=== PATIENT | female | born 1970 | race Two or more races ===

== ENCOUNTER 2018-02-23 14:27 | Emergency (ER) | payer BC, OTHER ==
[2018-02-23 14:45] VITALS: TEMP 97.8; BMI 29.2
--- NOTE | 2018-02-23 14:49 | PDOC ---
History of Present Illness - General Chief Complaint: Pain Stated Complaint: ABDOMINAL PAIN Time Seen by Provider: 02/23/18 14:49 - History of Present Illness Initial Comments: 02/23/18 16:25 The patient is a 47 year old female with a history of fibromyalgia, Lupus, Depression, Anxiety who presents for evaluation of abdominal pain. The patient reports a 1 day history of lower and jim-umbilical abdominal pain prompting her presentation to the Ed for further evaluation. She notes that she had a laproscopic hysterectomy due to uterine fibroids 1 month ago. She has noted some foul smelling vaginal discharge as well as burning on urination. She reports some nausea, but otherwise denies fevers, chills, SOB, chest pain, vomiting, or changes with bowel movements. Past History - Past Medical History Allergies/Adverse Reactions: Allergies Allergy/AdvReac Type Severity Reaction Status Date / Time No Known Allergies Allergy Unverified 02/23/18 14:29 Home Medications: Ambulatory Orders Clonazepam [Klonopin] 1 mg PO BID 02/23/18 Zolpidem Tartrate [Ambien] 12.5 mg PO HS 02/23/18 COPD: No Diabetes: Yes Other medical history: LUPUS,FIBROMYALGIA - Suicide/Smoking/Psychosocial Hx Smoking History: Never smoked Information on smoking cessation initiated: No Hx Alcohol Use: No Drug/Substance Use Hx: No Substance Use Type: None Review of Systems - Review of Systems Comments:: 02/23/18 16:28 Constitutional: No fevers, chills, fatigue, malaise HEENT: No Rhinorrhea, nasal congestion, visual changes Cardiovascular: No chest pain, syncope, palpitations, lightheadedness Respiratory: No Cough, SOB, Hemoptysis, Gastrointestinal: Abdominal pain, nausea. No Vomiting, Constipation, Diarrhea, Melena Genitourinary: Dysuria, Vaginal discharge. No Frequency, Urgency, Hesitancy, Hematuria, Flank pain Musculoskeletal: No Myalgia, arthralgia Skin: No rashes, itching, bruising, pallor Neurologic: No Headache, Dizziness, Numbness, Weakness, or Tingling Psychiatric: No Hallucinations. No SI or HI *Physical Exam - Vital Signs Last Vital Signs Temp Pulse Resp BP Pulse Ox 97.8 F 102 H 16 117/79 100 02/23/18 14:29 02/23/18 14:29 02/23/18 14:29 02/23/18 14:29 02/23/18 14:29 - Physical Exam Comments: 02/23/18 16:28 General Appearance: Nourished. No Apparent Distress HEENT: No Pharyngeal Erythema, Tonsillar Exudate, Tonsillar Erythema Neck: No Cervical Lymphadenopathy Respiratory/Chest: Lungs Clear, Normal Breath Sounds. No Crackles, Rales, Rhonchi, Wheezing Cardiovascular: Regular Rhythm, Regular Rate. No Murmur, Gallops, Rubs Gastrointestinal/Abdominal: Normal Bowel Sounds, Soft. Diffuse discomfort with palpation with some tenderness to palpation periumbilically. No Guarding, Rebound, Pelvic Exam: Normal External Exam. Yellowish, purulent fluid noted in the vaginal canal. No CMT, or adenxal tenderness Musculoskeletal: No CVA Tenderness Extremity: Normal Capillary Refill Integumentary: Normal Color, Dry, Warm Neurologic: Fully Oriented, Alert, Normal Mood/Affect, Normal Response, ED Treatment Course - LABORATORY CBC & Chemistry Diagram: 02/23/18 15:45 02/23/18 15:45 Medical Decision Making - Medical Decision Making 02/23/18 16:31 The patient is a 47 year old female with a history of fibromyalgia, Lupus, Depression, Anxiety who presents for evaluation of abdominal pain. Differential includes but is not limited to: UTI, PID, Infectious, Metabolic Derangement. Given the patient's history and physical exam, we will obtain a cbc, cmp, lipase, ua, urine culture, g/c amplifcation, abdominal/pelvis CT to evaluate further for possible etiologies. We will continue to monitor and reassess while here in the ED. 02/23/18 18:54 CBC, cmp, lipase are unremarkable. UA is positive for leuk esterase with elevated wbc consistent with a UTI. CT abdomen pelvis was unremarkable as read by our radiologist. Given the patient's results, it is likely her symptoms are due to a cervicitis and UTI. We will treat with IM 250mg ceftriaxone and 1g azithromycin here in the ED. We are comfortable discharging the patient home with surgery and primary care provider follow up. We discussed the results, plan, and return precautions with the patient who voiced understanding and is agreeable with the plan. *DC/Admit/Observation/Transfer Diagnosis at time of Disposition: Cervicitis UTI (urinary tract infection) Qualifiers: Urinary tract infection type: site unspecified Hematuria presence: without hematuria Qualified Code(s): N39.0 - Urinary tract infection, site not specified - Discharge Dispostion Disposition: HOME Condition at time of disposition: Stable Decision to Admit order: No - Referrals - Patient Instructions Printed Discharge Instructions: DI for Urinary Tract Infection (UTI), DI for Acute Cervicitis Additional Instructions: Please return to the ER if you experience concerning or worsening symptoms including worsening pain, fevers, or vomiting. Your lab results show that you have a urinary tract infection. Your CT scan results were normal here in the ER. We treated you with antibiotics here in the ER. It is important that you call to schedule a follow up appointment with your surgeon and primary care provider within 1 week to discuss your ER visit and further management of your symptoms. - Post Discharge Activity
[2018-02-23] MEDS ORDERED: morphine CARPU-JECT 4 MG/1 ML DISP.SYRIN IVPUSH ONE (15:44)
--- NOTE | 2018-02-23 15:55 | PDOC ---
Attending Attestation - Resident Resident Name: Glenroy Otero - ED Attending Attestation I have performed the following: I have examined & evaluated the patient, The case was reviewed & discussed with the resident, I agree w/resident's findings & plan, Exceptions are as noted - HPI HPI: 47 yo F history fibromyalgia, SLE, depression, anxiety presents with 1 day history of lower abdominal pain radiating to umbilicus. She states she had a lap hysterectomy for fibroids 1 month ago, cervix left intact. She notes dysuria and yellow vaginal discharge. No bleeding. No fever. - Physicial Exam PE: GENERAL: Awake, alert, and fully oriented, in no acute distress. Appears uncomfortable. HEAD: No signs of trauma EYES: PERRLA, EOMI, sclera anicteric, conjunctiva clear ENT: Auricles normal inspection, hearing grossly normal, nares patent, oropharynx clear without exudates. Moist mucosa NECK: Normal ROM, supple, no lymphadenopathy, JVD, or masses LUNGS: Breath sounds equal, clear to auscultation bilaterally. No wheezes, and no crackles HEART: Regular rate and rhythm, normal S1 and S2, no murmurs, rubs or gallops ABDOMEN: Soft, diffusely tender, normoactive bowel sounds. No guarding, no rebound. No masses EXTREMITIES: Normal range of motion, no edema. No clubbing or cyanosis. No cords, erythema, or tenderness NEUROLOGICAL: Cranial nerves II through XII grossly intact. Normal speech, normal gait SKIN: Warm, Dry, normal turgor, no rashes or lesions noted. : +Yellow discharge. +Tenderness to the cervix. No external lesions. - Medical Decision Making CT obtained in light of history of recent surgery. No acute findings. UA shows signs of UTI. Patient treated empirically for cervicitis based on finding of yellow discharge. Abx for UTI. Stable for DC home.
[2018-02-23 16:10] LABS: PH,URINE 5.5 (4.5-8); URINE BILIRUBIN Negative (NEGATIVE); URINE COLOR Yellow; URINE GLUCOSE (UA) Negative (NEGATIVE); URINE KETONE Negative (NEGATIVE); URINE NITRITE Negative (NEGATIVE); URINE PROTEIN Negative (NEGATIVE); URINE UROBILINOGEN 0.2 (0.2-1.0)
[2018-02-23] MEDS ORDERED: morphine SULFATE 4 MG/ML VIAL ONE (16:14)
[2018-02-23 16:17] LABS: BASO % 0.8 % (0-2.0); EOS % 0.5 % (0-4.5); HEMATOCRIT 36.7 % (32.4-45.2); HEMOGLOBIN 11.8 GM/dl (10.7-15.3); LYMPH % 9.1 % (8-40); MCH 26.6 pg (25.7-33.7); MCHC 32.1 g/dl (32.0-36.0); MEAN CELL VOLUME 83.1 fl (80-96); MONO % 6.1 % (3.8-10.2); NEUT % 83.5 % (42.8-82.8); PLATELET COUNT 235 K/MM3 (134-434); RBC 4.41 M/mm3 (3.60-5.2); RDW 14.9 % (11.6-15.6); WHITE BLOOD COUNT 8.5 K/mm3 (4.0-10.8)
[2018-02-23 16:24] LABS: URINE APPEARANCE HAZY; URINE LEUK ESTERASE 2+ (NEGATIVE)
[2018-02-23 16:39] LABS: AMORP URATES FEW /hpf (NONE SEEN); EPI CELLS FEW /HPF; URINE BACTERIA FEW /hpf (NEGATIVE)
[2018-02-23 16:54] LABS: ALBUMIN 4.3 g/dl (3.5-5.0); ALK PHOS 117 U/L (32-92); ANION GAP 7 MMOL/L (8-16); BILIRUBIN,TOTAL 0.6 mg/dl (0.2-1.0); BLOOD UREA NITROGEN 17 mg/dl (7-18); CALCIUM 9.3 mg/dl (8.4-10.2); CHLORIDE 104 mmol/L (98-107); CO2 25 mmol/L (22-28); CREATININE 0.7 mg/dl (0.6-1.3); GLUCOSE,RANDOM 108 mg/dl (74-106); POTASSIUM 4.3 mmol/L (3.5-5.1); SGOT/AST 22 U/L (10-42); SGPT/ALT 23 U/L (10-40); SODIUM 136 mmol/L (136-145); TOT PROT 8.3 g/dl (6.4-8.3)
[2018-02-23] MEDS ORDERED: AZITHROMYCIN 1 GM PACKET PO ONE (17:27)
[2018-02-23] MEDS ORDERED: IBUPROFEN 600 MG TABLET (FP) PO ONE ×2 (17:34→17:46)
[2018-02-23] MEDS ORDERED: AZITHROMYCIN 250 MG TABLET ONE (17:47)
[2018-02-23 17:48] VITALS: BP 106/68; PULSE 94
[2018-02-23 18:02] LABS: LIPASE 137 U/L (73-393)
== END 2018-02-23 18:02 | disposition home or self-care (01) ==
LOC: FER 14:27
DX: N72 Inflammatory disease of cervix uteri (principal); N39.0 Urinary tract infection, site not specified; M32.9 Systemic lupus erythematosus, unspecified; E11.9 Type 2 diabetes mellitus without complications; M79.7 Fibromyalgia
CPT/HCPCS: 36415; 74176-TC; 80053; 81003; 81015; 83690; 85025; 87086; 87491; 87591; 99283-25